=== PATIENT | male | born 1960 | race Two or more races ===

== ENCOUNTER 2018-09-18 17:22 | Inpatient (IN) | payer MEDICAID ==
[~2018-09-18] VITALS: Ht 177.8 cm; Wt 113.4 kg
[2018-09-18] VITALS (24 sets, daily range): BP systolic 135–158; BP diastolic 73–85
[2018-09-18] MEDS ORDERED: Ciprofloxacin Opth Soln 2.5ml BOTH EYES ONE (17:45)
[2018-09-18] MEDS ORDERED: DiphenhydrAMINE 50mg/ml Inj IM ONE (17:45)
[2018-09-18] MEDS ORDERED: Haloperidol 5mg/ml Inj IM ONE ×2 (17:45→19:15)
--- NOTE | 2018-09-18 18:00 | NUR ---
ED Nurse Note:[facility] ,he doesn't fallow command walked around ER then layed on the floor 2 times without injury and getting up on his own, then he was placed on 4 points behaivioral restraints
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
--- NOTE | 2018-09-18 18:36 | NUR ---
ED Nurse Note:pt. can't go to head CT scan because he is still restless
[2018-09-18 18:43] LABS: BASOPHILS % (AUTO) 0.8 % (0.0-2.0); EOSINOPHILS % (AUTO) 2.4 % (0.0-3.0); HEMOGLOBIN 14.8 G/DL (14.2-18.0); LYMPHOCYTES % (AUTO) 18.9 % (20.0-45.0); MEAN CORPUSCULAR VOLUME 90 FL (80-99); MONOCYTES % (AUTO) 5.9 % (1.0-10.0); NEUTROPHILS % (AUTO) 71.9 % (45.0-75.0); PLATELET COUNT 209 K/UL (150-450); RED BLOOD COUNT 4.79 M/UL (4.70-6.10); RED CELL DISTRIBUTION WIDTH 11.3 % (11.6-14.8)
--- NOTE | 2018-09-18 18:58 | NUR ---
ED Nurse Note:pt. is still agitated- MD was notified
[2018-09-18 19:34] LABS: ANION GAP 12 mmol/L (5-15); BLOOD UREA NITROGEN 27 mg/dL (7-18); CALCIUM 9.4 MG/DL (8.5-10.1); CARBON DIOXIDE 25 MMOL/L (21-32); CHLORIDE 101 MMOL/L (98-107); CREATININE 1.1 MG/DL (0.55-1.30); POTASSIUM 3.9 MMOL/L (3.5-5.1); SODIUM 138 MMOL/L (136-145)
[2018-09-18 19:38] LABS: ALANINE AMINOTRANSFERASE 42 U/L (12-78); ALBUMIN 4.3 G/DL (3.4-5.0); ALBUMIN/GLOBULIN RATIO 1.1 (1.0-2.7); ALKALINE PHOSPHATASE 89 U/L (46-116); ASPARTATE AMINO TRANSFERASE 45 U/L (15-37); BILIRUBIN,TOTAL 0.8 MG/DL (0.2-1.0)
--- NOTE | 2018-09-18 19:46 | Diagnostic Imaging Report ---
EXAM: XR Chest, 1 View CLINICAL HISTORY: ALOC TECHNIQUE: Frontal view of the chest. COMPARISON: No relevant prior studies available. FINDINGS: Limitations: Limited due to hypoventilation. Lungs: Possible mild pulmonary edema/infiltrates, versus hypoventilation. Pleural space: Unremarkable. No pneumothorax. Heart: Mildly prominent heart size. Mediastinum: Unremarkable. Bones/joints: Unremarkable. IMPRESSION: 1. Limited due to hypoventilation. 2. Possible mild pulmonary edema/infiltrates, versus hypoventilation.
--- NOTE | 2018-09-18 20:30 | NUR ---
ED Nurse Note: Report givent to ENE Pope. Pt in stable condition. Plan of care endorsed Addendum: 09/19/18 at 0417 by LCRISOSTOM [id number] ; wrong time
--- NOTE | 2018-09-18 21:40 | NUR ---
ED Nurse Note: Received report from Naun LOVE/ ENE. Pt is A/O X3, confused. VSS at this titme, will continue to monitor.
--- NOTE | 2018-09-18 21:41 | NUR ---
ED Nurse Note: None behaver restrain was not applied at this time.
[2018-09-18 22:19] LABS: APPEARANCE,URINE SLIGHTLY CLOUDY; BILIRUBIN, URINE NEGATIVE (NEGATIVE); COLOR,URINE PALE YELLOW; GLUCOSE, URINE (UA) 3+ (NEGATIVE); KETONES,URINE NEGATIVE (NEGATIVE); LEUKOCYTE ESTERASE ,URINE 1+ (NEGATIVE); NITRITE,URINE NEGATIVE (NEGATIVE); PH,URINE 5 (4.5-8.0); PROTEIN,URINE 2+ (NEGATIVE); UROBILINOGEN,URINE NORMAL MG/DL (0.0-1.0)
[2018-09-18] MEDS ORDERED: DiphenhydrAMINE 50mg/ml Inj IVP ONE (23:00)
[2018-09-18] MEDS ORDERED: LORazepam Inj 2mg/ml 1ml IV ONE ×2 (23:00→23:45)
[2018-09-19] VITALS: BP 146/76
--- NOTE | 2018-09-19 00:05 | NUR ---
ED Nurse Note: Pt was resting quietly in bed at this time. Juice and sandwich provided, urinal provided as well. Pt looks more alert and oriented at this time. Behavioral restrain was removed.
--- NOTE | 2018-09-19 01:23 | Diagnostic Imaging Report ---
EXAM: CT Head Without Intravenous Contrast CLINICAL HISTORY: ALOC TECHNIQUE: Axial computed tomography images of the head/brain without intravenous contrast. CTDI is 70 mGy and DLP is 1562 mGy-cm. One or more of the following dose reduction techniques were used: automated exposure control, adjustment of the mA and/or kV according to patient size, use of iterative reconstruction technique. COMPARISON: No relevant prior studies available. FINDINGS: Brain: Unremarkable. No hemorrhage. No significant white matter disease. No edema. Ventricles: Unremarkable. No ventriculomegaly. Bones/joints: Unremarkable. No acute fracture. Soft tissues: Unremarkable. Sinuses: Increased pneumatization of the frontal sinuses. Mucosal thickening of the ethmoid sinus. Mastoid air cells: Unremarkable as visualized. No mastoid effusion. IMPRESSION: No acute intracranial pathology.
--- NOTE | 2018-09-19 03:40 | NUR ---
TRANSFER TO FLOOR: Patient transferred to Tele/ 2E as ordered. Report given to Adriana/ENE. Belongings sent with Pt and rechecked with RN.
--- NOTE | 2018-09-19 03:45 | NUR ---
NURSE NOTES: Received report from DANYA Quevedo RN. Patient was transferred to Telemetry unit from ER via gurney without incident. No signs of acute distress noted; denies pain at this time. AOx2-3; able to make needs known. Checked IV site; patent and flushed. No erythema, bleeding, or infiltration noted. Patient put on Tele box; sinus tachycardic on the monitor (100s). Belongings list checked. Skin assessment performed; no wounds noted. Skin is intact. Bed at lowest position, brakes on, siderails up x3. Call light within reach. Will continue to monitor.
--- NOTE | 2018-09-19 03:58 | NUR ---
NURSE NOTES: Called Dr. Boswell for admission orders. Awaiting callback.
--- NOTE | 2018-09-19 04:19 | NUR ---
NURSE NOTES: Received admission orders from Dr. Boswell. Noted and carried out. No Heparin subQ order given for DVT prophylaxis at this time.
[2018-09-19] MEDS ORDERED: LORazepam Inj 2mg/ml 1ml IV PRN ×2 (04:30→18:00)
[2018-09-19] MEDS ORDERED: ASPIRIN81 MG ORAL (04:31)
[2018-09-19] MEDS ORDERED: BENZTROPINE ME0.5 MG PO (04:31)
[2018-09-19] MEDS ORDERED: ACETAMINOPHEN325 M1 ORAL (04:31)
--- NOTE | 2018-09-19 07:34 | NUR ---
HAND-OFF: Report given to ENE Leahy. Patient is awake sitting chairfast. In stable condition.
--- NOTE | 2018-09-19 07:43 | NUR ---
NURSE NOTES: Pt in room rooming around in and out of room into [address], pt Ox1 with confusion, mumbles words, not sure if he speaks tajik, pt seems to be GD (Gravely Disabled), call light at bedside, bed in low position, pt follows commands, IV asymptomatic, no s/s of distress or sob noted.
[2018-09-19 08:00] VITALS: BP 136/80
[2018-09-19] MEDS ORDERED: Aspirin Baby 81mg ORAL SCH (09:00)
[2018-09-19] MEDS ORDERED: Benztropine 1mg tab ORAL SCH (09:00)
--- NOTE | 2018-09-19 09:08 | History & Physical ---
History and Physical History & Physicial 58 year old male presents with ALOC work up in ER negative no significant medical issues noted PMH negative MEDS noted ALLERGIES noted PHYSICAL WDWN NAD clear breath sounds bilaterally without rhonchi or wheeze [id number] without MRG NABS nontender no HSM no CCE nonfocal Labs Test 09/18/18 18:20 09/18/18 22:08 White Blood Count 11.0 K/UL (4.8-10.8) Red Blood Count 4.79 M/UL (4.70-6.10) Hemoglobin 14.8 G/DL (14.2-18.0) Hematocrit 43.0 % (42.0-52.0) Mean Corpuscular Volume 90 FL (80-99) Mean Corpuscular Hemoglobin 31.0 PG (27.0-31.0) Mean Corpuscular Hemoglobin Concent 34.5 G/DL (32.0-36.0) Red Cell Distribution Width 11.3 % (11.6-14.8) Platelet Count 209 K/UL (150-450) Mean Platelet Volume 7.2 FL (6.5-10.1) Neutrophils (%) (Auto) 71.9 % (45.0-75.0) Lymphocytes (%) (Auto) 18.9 % (20.0-45.0) Monocytes (%) (Auto) 5.9 % (1.0-10.0) Eosinophils (%) (Auto) 2.4 % (0.0-3.0) Basophils (%) (Auto) 0.8 % (0.0-2.0) Sodium Level 138 MMOL/L (136-145) Potassium Level 3.9 MMOL/L (3.5-5.1) Chloride Level 101 MMOL/L (98-107) Carbon Dioxide Level 25 MMOL/L (21-32) Anion Gap 12 mmol/L (5-15) Blood Urea Nitrogen 27 mg/dL (7-18) Creatinine 1.1 MG/DL (0.55-1.30) Estimat Glomerular Filtration Rate > 60 mL/min (>60) Glucose Level 244 MG/DL (74-106) Calcium Level 9.4 MG/DL (8.5-10.1) Total Bilirubin 0.8 MG/DL (0.2-1.0) Aspartate Amino Transf (AST/SGOT) 45 U/L (15-37) Alanine Aminotransferase (ALT/SGPT) 42 U/L (12-78) Alkaline Phosphatase 89 U/L (46-116) Troponin I 0.000 ng/mL (0.000-0.056) Total Protein 8.1 G/DL (6.4-8.2) Albumin 4.3 G/DL (3.4-5.0) Globulin 3.8 g/dL Albumin/Globulin Ratio 1.1 (1.0-2.7) Salicylates Level 2.5 ug/mL (2.8-20) Acetaminophen Level < 2 MCG/ML (10-30) Serum Alcohol < 3 mg/dL Urine Color Pale yellow Urine Appearance Slightly cloudy Urine pH 5 (4.5-8.0) Urine Specific [place] 1.020 (1.005-1.035) Urine Protein 2+ (NEGATIVE) Urine Glucose (UA) 3+ (NEGATIVE) Urine Ketones Negative (NEGATIVE) Urine Blood 4+ (NEGATIVE) Urine Nitrite Negative (NEGATIVE) Urine Bilirubin Negative (NEGATIVE) Urine Urobilinogen Normal MG/DL (0.0-1.0) Urine Leukocyte Esterase 1+ (NEGATIVE) Urine RBC 10-15 /HPF (0 - 0) Urine WBC 2-4 /HPF (0 - 0) Urine Squamous Epithelial Cells Occasional /LPF Urine Amorphous Sediment Moderate /LPF (NONE) Urine Bacteria Few /HPF (NONE) Urine Mucus Few /LPF (NONE/OCC) Urine Opiates Screen Negative (NEGATIVE) Urine Barbiturates Screen Negative (NEGATIVE) Phencyclidine (PCP) Screen Negative (NEGATIVE) Urine Amphetamines Screen Negative (NEGATIVE) Urine Benzodiazepines Screen Negative (NEGATIVE) Urine Cocaine Screen Negative (NEGATIVE) Urine Marijuana (THC) Screen Positive (NEGATIVE) IMPRESSION hematuria acute encephalopathy +marijuana PLAN monitor PT eval dc once stable consider neuro and psych evaluation impression, plan, and exam edited and reviewed in detail care discussed with Chase Alejandre MD Sep 19, 2018 09:08
--- NOTE | 2018-09-19 09:08 | NUR ---
CASE MANAGEMENT:REVIEW BIBA FROM [facility]; AMS SI:ALOC. BACTERIAL CONJUNCTIVITIS. COLLAPSE 99.2 102 18 158/76 98% ON RA WBC 11.0 BUN 27 GLUCOSE 244 IS: 1L NS BOLUS CIPRO EYE DROPS HALDOL IM X2 IV BENADRYL IV ATIVAN X2 CT HEAD CXR : TO TELEMETRY PLAN: PSYCH EVAL SOCIAL SERVICE CONSULT PT EVAL NEURO CHECKS Q4HRS INTERQUAL CRITERI MET
[2018-09-19 11:49] VITALS: BP 126/76
[2018-09-19 16:00] VITALS: BP 134/79
--- NOTE | 2018-09-19 17:07 | NUR ---
NURSE NOTES: Pt transferred to 3E and report given to Monika Hoang. Pt Ox1 calm and cooperative but likes to wonder.
--- NOTE | 2018-09-19 19:48 | NUR ---
NURSE NOTES: Received report from Monika LUQUE. Pt only oriented to self and is confused. Likes to wonder around but is calm and redirectable. VSS. Call light within reach, bed in low and locked position, bedside table within reach. Continue to monitor.
[2018-09-19 20:00] VITALS: BP 131/54
[2018-09-20] VITALS: BP 140/87
[2018-09-20 04:00] VITALS: BP 121/72
--- NOTE | 2018-09-20 07:30 | NUR ---
NURSE NOTES: Patient is awake and stable. No s/s distress at this time. Patient denies pain or SOB. Patient is in good spirits. Patient in bed in locked position and call light within reach. Will continue to monitor.
[2018-09-20 08:00] VITALS: BP 133/80
--- NOTE | 2018-09-20 08:02 | NUR ---
HAND-OFF: Report given to Pauline Hoang. endorsed plan of care.
[2018-09-20] MEDS: Benztropine 1mg tab ORAL SCH (09:08)
[2018-09-20] MEDS: Aspirin Baby 81mg ORAL SCH (09:08)
--- NOTE | 2018-09-20 11:01 | NUR ---
CASE MANAGEMENT: REVIEW SI: AMS T 97.4 HR 78 RR 20 BP 133/80 BP 97% ROOM AIR IS: ASA PO QD COGENTIN PO QD MED/SURG STATUS DCP: PATIENT REPORTS HOMELESSNESS
[2018-09-20 12:00] VITALS: BP 141/82
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
[2018-09-20 16:00] VITALS: BP 134/75
--- NOTE | 2018-09-20 19:25 | NUR ---
NURSE NOTES: Report taken from ENE Moraes. Patient is alert and out of bed, walking around room. On room air, no signs of distress or pain. Patient is hoping to get discharged. States that is not homeless and can provide and address but no phone number. RN told patient that once the family is found he can go home. Continue to monitor and observe patient. Talk to case management if he does not continue to find family.
--- NOTE | 2018-09-20 19:43 | NUR ---
HAND-OFF: Report given to Kraig LUQUE. Patient is stable.
[2018-09-20 20:00] VITALS: BP 137/77
--- NOTE | 2018-09-20 22:26 | General Progress Note ---
Assessment/Plan Assessment/Plan IMPRESSION hematuria acute encephalopathy +marijuana PLAN ok to dc awaiting safe discharge impression, plan, and exam edited and reviewed in detail care discussed with RN Subjective Allergies: Coded Allergies: UNABLE TO ASSESS (Unverified , 09/18/18) Subjective awaiting dc psych called Objective Last 24 Hour Vital Signs Date Time Temp Pulse Resp B/P (MAP) Pulse Ox O2 Delivery O2 Flow Rate FiO2 09/20/18 16:00 96.8 77 20 134/75 (94) 98 09/20/18 12:00 99.3 73 20 141/82 (101) 98 09/20/18 09:00 Room Air 09/20/18 08:00 97.4 78 20 133/80 (97) 97 09/20/18 04:00 98.7 66 19 121/72 (88) 95 09/20/18 00:00 98.8 72 18 140/87 (104) 95 Intake and Output 09/19/18 09/20/18 19:00 07:00 Intake Total 200 ml 240 ml Balance 200 ml 240 ml Intake Oral 200 ml 240 ml # Voids 2 2 Height (Feet): 5 Height (Inches): 10.00 Weight (Pounds): 250 Objective WDWN NAD clear breath sounds bilaterally without rhonchi or wheeze [id number] without MRG NABS nontender no HSM no CCE nonfocal Chase Boswell MD Sep 20, 2018 22:26
[2018-09-21] VITALS: BP 123/71
--- NOTE | 2018-09-21 03:57 | NUR ---
NURSE NOTES: Patient refused 0400 vitals.
--- NOTE | 2018-09-21 07:17 | NUR ---
HAND-OFF: Report given to ENE Lee.
--- NOTE | 2018-09-21 07:30 | NUR ---
NURSE NOTES: Patient sitting in chair eating breakfast. No complain of pain or distress at this time. Skin intact and dry. No IV access and MD aware. Bed lowest position. Call light within reach. Will continue to monitor.
[2018-09-21 08:00] VITALS: BP 126/80
[2018-09-21] MEDS: Benztropine 1mg tab ORAL SCH (09:12)
[2018-09-21] MEDS: Aspirin Baby 81mg ORAL SCH (09:12)
[2018-09-21 12:00] VITALS: BP 122/76
--- NOTE | 2018-09-21 13:41 | Consultation ---
History of Present Illness General Chief Complaint: General Complaint Present Illness HPI 58 yo male with hx of schizoaffective d.o who is admitted here for medical stabilization. The pt denied psychiatric illness and stated that he doesn't need psychiatric care nor meds. [place] he found self in the hospital. the pt has no recollection of what led him to this hospitalization. The pts family was called spoke to the sister the pts sister has power of assistant prosecuting attorney. the pts speech was slurred and per sister thats the pts baseline. no si/hi Allergies: Coded Allergies: UNABLE TO ASSESS (Unverified , 09/18/18) Medication History Miscellaneous Medications Acetaminophen* (Acetaminophen 325MG Tablet*), Unknown Dose ORAL, (Reported) Aspirin* (Aspirin*), Unknown Dose ORAL, (Reported) Benztropine Mesylate* (Cogentin*), Unknown Dose PO, (Reported) Patient History History Provided By: Patient, Family Member, Medical Record Healthcare decision maker Resuscitation status Full Code Advanced Directive on File Past Medical/Surgical History Past Medical/Surgical History: (1) Bacterial conjunctivitis (2) Altered level of consciousness (3) Collapse (4) Marijuana use Review of Systems Psychiatric: Reports: anxiety, depressed feelings, emotional problems, hallucinations Physical Exam General Appearance: alert, agitated Neurologic: oriented x 3, responsive, depressed affect Last 24 Hour Vital Signs Date Time Temp Pulse Resp B/P (MAP) Pulse Ox O2 Delivery O2 Flow Rate FiO2 09/21/18 12:00 97.5 70 20 122/76 (91) 99 09/21/18 09:00 Room Air 09/21/18 08:00 97.8 70 19 126/80 (95) 98 09/21/18 00:00 98.1 74 18 123/71 (88) 98 09/20/18 21:00 Room Air 09/20/18 20:00 97.9 68 18 137/77 (97) 100 09/20/18 16:00 96.8 77 20 134/75 (94) 98 Intake and Output 09/20/18 09/21/18 19:00 07:00 Intake Total 840 ml 360 ml Balance 840 ml 360 ml Intake Oral 840 ml 360 ml # Voids 4 2 Height (Feet): 5 Height (Inches): 10.00 Weight (Pounds): 250 Medications Current Medications Medications (Trade) Dose Ordered Sig/Yoan Route PRN Reason Start Time Stop Time Status Last Admin Dose Admin Acetaminophen (Tylenol) 650 mg Q4H PRN ORAL Mild Pain/Temp > 100.5 09/19/18 20:30 10/19/18 04:29 Aspirin (ASA) 81 mg DAILY ORAL 09/20/18 09:00 10/19/18 08:59 09/21/18 09:12 Benztropine Mesylate (Cogentin) 1 mg DAILY ORAL 09/20/18 09:00 10/19/18 08:59 09/21/18 09:12 Lorazepam (Ativan 2mg/ml 1ml) 1 mg Q3H PRN IV MILD ANXIETY 09/19/18 18:00 09/26/18 17:59 Assessment/Plan Problem List: (1) Schizoaffective disorder ICD Codes: F25.9 - Schizoaffective disorder, unspecified SNOMED: 98983551 (2) Marijuana use ICD Codes: F12.90 - Cannabis use, unspecified, uncomplicated SNOMED: 479309540 Assessment/Plan depakote er 1000mg qhs risperdal 2mg qhs the pt lacks capacity to refuse meds/nor leave Rola Carmona MD Sep 21, 2018 13:41
[2018-09-21] MEDS ORDERED: LORazepam Inj 2mg/ml 1ml IV PRN (15:00)
[2018-09-21 16:00] VITALS: BP 133/73
--- NOTE | 2018-09-21 16:28 | NUR ---
Social Service Note Patient's insurance information updated. Due to patient's [employer] HMO and requiring PET Eval there are limited choices for assessment. [facility] [phone] (p) [phone] (f). No beds at this time however are willing to hold referral pending review. Confirmed faxed was received. [facility] [phone] (p) [phone] (f) no beds asked SW to follow up tomorrow. [facility] [phone] (p) [phone] (f) no beds asked SW to follow up tomorrow. SW spoke with patient's sister Carlos Enrique [phone] and inquired about documentation indicating patient is autistic. Sister states patient was never diagnosed with autism and is not a the [facility] clinic. Sister states a nurse once indicated to her that patient would talk to himself and this could be an indication of autism. SW clarified that throughout patient's medical history a physician never diagnosed patient with autism and sister stated a physician never diagnosed patient. Patient has never received autistic related services. APS case was filed through [facility] [employer] [facility] prior to admission. GIOVANNI Barrientos assigned to patient's case [phone] (c) [phone] (o). Met with patient today. APS SW to be notified of dc plan upon discharge. SW will follow up regarding psych placement, CM to discuss locked placement with insurance CM.
--- NOTE | 2018-09-21 17:35 | NUR ---
CASE MANAGEMENT: REVIEW SI: AMS T 97.5 HR 70 RR 20 BP 122/76 SAT 99% ROOM AIR IS: ASA PO QD COGENTIN PO QD MED/SURG STATUS DCP: PATIENT REPORTS HOMELESSNESS
--- NOTE | 2018-09-21 19:20 | NUR ---
HAND-OFF: Report given to Kraig LUQUE. Patient in stable condition.
--- NOTE | 2018-09-21 19:25 | NUR ---
NURSE NOTES: Report taken from ENE Lee. patient alert and walking around room. No signs of distress, on room air. No pain. Still asks what his discharge plan is. Continue to monitor, bed in lowest position, call light within reach.
--- NOTE | 2018-09-21 19:47 | General Progress Note ---
Assessment/Plan Assessment/Plan IMPRESSION hematuria acute encephalopathy +marijuana PLAN psych noted awaiting safe discharge family refusing to take patient impression, plan, and exam edited and reviewed in detail care discussed with RN Subjective Allergies: Coded Allergies: UNABLE TO ASSESS (Unverified , 09/18/18) Subjective awaiting dc psych called Objective Last 24 Hour Vital Signs Date Time Temp Pulse Resp B/P (MAP) Pulse Ox O2 Delivery O2 Flow Rate FiO2 09/21/18 16:00 97.7 70 19 133/73 (93) 98 09/21/18 12:00 97.5 70 20 122/76 (91) 99 09/21/18 09:00 Room Air 09/21/18 08:00 97.8 70 19 126/80 (95) 98 09/21/18 00:00 98.1 74 18 123/71 (88) 98 09/20/18 21:00 Room Air 09/20/18 20:00 97.9 68 18 137/77 (97) 100 Intake and Output 09/20/18 09/21/18 19:00 07:00 Intake Total 840 ml 360 ml Balance 840 ml 360 ml Intake Oral 840 ml 360 ml # Voids 4 2 Height (Feet): 5 Height (Inches): 10.00 Weight (Pounds): 250 Objective WDWN NAD clear breath sounds bilaterally without rhonchi or wheeze [id number] without MRG NABS nontender no HSM no CCE nonfocal Chase Boswell MD Sep 21, 2018 19:47
[2018-09-21 20:00] VITALS: BP 118/75
[2018-09-21] MEDS: Depakote ER 500mg tab ORAL SCH (20:55)
[2018-09-22] VITALS: BP 120/70
[2018-09-22 04:00] VITALS: BP 125/75
--- NOTE | 2018-09-22 07:15 | NUR ---
HAND-OFF: Report given to ENE Lee.
--- NOTE | 2018-09-22 07:30 | NUR ---
NURSE NOTES: Patient lying in bed awake. No complain of pain or distress at this time. Skin intact and dry. All needs met. Bed lowest position. Call light within reach. Will continue to monitor.
[2018-09-22 08:00] VITALS: BP 118/78
[2018-09-22] MEDS: Aspirin Baby 81mg ORAL SCH (09:04)
[2018-09-22] MEDS: Benztropine 1mg tab ORAL SCH (09:04)
--- NOTE | 2018-09-22 11:51 | NUR ---
Social Service Note GIOVANNI received a call from Sai at [facility]. GIOVANNI contacted Dr. Boswell to clarify treatment. Indication that patient had bacterial conjunctivitis. Patient's sister stated she left Dr. Reno a message regarding patient not being diagnosed with Autism. Psych will not be able to accept patient with this diagnosis. Will monitor and follow up.
[2018-09-22 12:00] VITALS: BP 144/80
--- NOTE | 2018-09-22 15:29 | Pulmonology Progress Note ---
Assessment/Plan Assessment/Plan Pulmonary Progress Note Assessment/Plan Assessment/Plan IMPRESSION hematuria acute encephalopathy +marijuana PLAN psych noted awaiting safe discharge family refusing to take patient impression, plan, and exam edited and reviewed in detail care discussed with RN Subjective Allergies: Coded Allergies: UNABLE TO ASSESS (Unverified , 09/18/18) Subjective awaiting dc psych called Objective Vital Signs Noted Height (Feet): 5 Height (Inches): 10.00 Weight (Pounds): 250 Objective WDWN NAD clear breath sounds bilaterally without rhonchi or wheeze [id number] without MRG NABS nontender no HSM no CCE nonfocal Subjective ROS Limited/Unobtainable: No Allergies: Coded Allergies: UNABLE TO ASSESS (Unverified , 09/18/18) Objective Last 24 Hour Vital Signs Date Time Temp Pulse Resp B/P (MAP) Pulse Ox O2 Delivery O2 Flow Rate FiO2 09/22/18 12:00 97.3 72 20 144/80 (101) 99 09/22/18 09:00 Room Air 09/22/18 08:00 97.3 81 20 118/78 (91) 97 09/22/18 04:00 98.0 75 17 125/75 (92) 96 09/22/18 00:00 98.1 80 19 120/70 (87) 98 09/21/18 21:00 Room Air 09/21/18 20:00 98.5 64 17 118/75 (89) 99 09/21/18 16:00 97.7 70 19 133/73 (93) 98 Intake and Output 09/21/18 09/22/18 19:00 07:00 Intake Total 900 ml 400 ml Balance 900 ml 400 ml Intake Oral 900 ml 400 ml # Voids 6 2 Current Medications Medications (Trade) Dose Ordered Sig/Yoan Route PRN Reason Start Time Stop Time Status Last Admin Dose Admin Acetaminophen (Tylenol) 650 mg Q4H PRN ORAL Mild Pain/Temp > 100.5 09/19/18 20:30 10/19/18 04:29 Aspirin (ASA) 81 mg DAILY ORAL 09/20/18 09:00 10/19/18 08:59 09/22/18 09:04 Benztropine Mesylate (Cogentin) 1 mg DAILY ORAL 09/20/18 09:00 10/19/18 08:59 09/22/18 09:04 Divalproex Sodium (Depakote ER) 1,000 mg BEDTIME ORAL 09/21/18 21:00 10/21/18 20:59 09/21/18 20:55 Lorazepam (Ativan 2mg/ml 1ml) 1 mg Q3H PRN IV MILD ANXIETY 09/21/18 15:00 09/28/18 14:59 Risperidone (RisperDAL) 2 mg BEDTIME ORAL 09/21/18 21:00 10/21/18 20:59 09/21/18 20:54 Junior Landaverde MD Sep 22, 2018 15:29
[2018-09-22 16:00] VITALS: BP 136/83
--- NOTE | 2018-09-22 16:14 | NUR ---
CASE MANAGEMENT: REVIEW SI: AMS T 97.3 HR 72 RR 20 BP 144/80 SAT 99% ROOM AIR IS: ASA PO QD COGENTIN PO QD MED/SURG STATUS DCP: PATIENT REPORTS HOMELESSNESS
--- NOTE | 2018-09-22 19:45 | NUR ---
HAND-OFF: Report given to Gina LUQUE. Patient in stable condition.
--- NOTE | 2018-09-22 19:50 | NUR ---
NURSE NOTES: patient received. patient in no acute distress at this time. patietn appears ot be in no pain at this time. bed awake and alert x1. confused. patient ambulatory and steady. no IV doctor aware. bed in lowest position and locked. call light within reach. will continue to monitor.
[2018-09-22 20:00] VITALS: BP 138/79
--- NOTE | 2018-09-22 20:06 | General Progress Note ---
Assessment/Plan Problem List: (1) Schizoaffective disorder ICD Codes: F25.9 - Schizoaffective disorder, unspecified SNOMED: 69762159 (2) Marijuana use ICD Codes: F12.90 - Cannabis use, unspecified, uncomplicated SNOMED: 380507985 Status: unchanged Assessment/Plan depakote er 1000mg qhs risperdal 2mg qhs the pt lacks capacity to refuse meds/nor leave ama dw sister Subjective Neurologic/Psychiatric: Reports: anxiety, depressed, emotional problems Allergies: Coded Allergies: UNABLE TO ASSESS (Unverified , 09/18/18) Objective Last 24 Hour Vital Signs Date Time Temp Pulse Resp B/P (MAP) Pulse Ox O2 Delivery O2 Flow Rate FiO2 09/22/18 16:00 99.0 73 21 136/83 (100) 98 09/22/18 12:00 97.3 72 20 144/80 (101) 99 09/22/18 09:00 Room Air 09/22/18 08:00 97.3 81 20 118/78 (91) 97 09/22/18 04:00 98.0 75 17 125/75 (92) 96 09/22/18 00:00 98.1 80 19 120/70 (87) 98 09/21/18 21:00 Room Air Intake and Output 09/21/18 09/22/18 19:00 07:00 Intake Total 900 ml 400 ml Balance 900 ml 400 ml Intake Oral 900 ml 400 ml # Voids 6 2 Height (Feet): 5 Height (Inches): 10.00 Weight (Pounds): 250 General Appearance: no apparent distress, alert Neurologic: oriented x 3, responsive, depressed affect Rola Reno MD Sep 22, 2018 20:06
[2018-09-22] MEDS: Depakote ER 500mg tab ORAL SCH (20:46)
[2018-09-23] VITALS: BP 119/78
[2018-09-23 04:00] VITALS: BP 123/73
--- NOTE | 2018-09-23 07:09 | NUR ---
HAND-OFF: Report given to ENE Gonzalez.
--- NOTE | 2018-09-23 07:25 | NUR ---
NURSE NOTES: Received report from Gina LUQUE. On rounds, patient is asleep in bed. No s/s acute distress noted, RR even and unlabored. Patient has no IV, per report MD is aware and ok with no IV. Patient is clear for discharge pending SNF placement. Will continue to monitor and follow up.
[2018-09-23 08:00] VITALS: BP 115/74
[2018-09-23] MEDS: Benztropine 1mg tab ORAL SCH (08:27)
[2018-09-23] MEDS: Aspirin Baby 81mg ORAL SCH (08:27)
--- NOTE | 2018-09-23 11:52 | NUR ---
REHAB MED PT NOTE -RE EVAL REEVAL COMPLTD, CONSULT RECEIVED, PATIENT WILL BENEFIT FROM CONTINUED SKILLED PT SERVICES DURING STAY DUE TO A DECREASE IN FUNCTIONAL MOBILITY SECONDARY TO WEAKNESS AND SEDENTARY TIME IN BED. RECOMMEND SNF AT [place]. PLAN OF CARE INITIATED. GIULIANA MARION PT DPT Addendum: 09/23/18 at 1153 by GIULIANA MARION PT Amended: Links added.
[2018-09-23 12:00] VITALS: BP 119/79
--- NOTE | 2018-09-23 13:12 | NUR ---
Social Service Note Patient accepted at [facility] [phone] per Lizzy. No beds however are available at this time. Facility will contact and nursing station once a bed is available. Will continue to monitor and follow up.
--- NOTE | 2018-09-23 13:56 | NUR ---
CASE MANAGEMENT: REVIEW SI: AMS T 97.5 HR 75 RR 19 BP 119/79 SAT 100% ROOM AIR IS: ASA PO QD COGENTIN PO QD MED/SURG STATUS DCP: SNF PLACEMENT
[2018-09-23 16:00] VITALS: BP 128/78
--- NOTE | 2018-09-23 16:48 | General Progress Note ---
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) PLAN psych noted awaiting safe discharge family refusing to take patient impression, plan, and exam edited and reviewed in detail care discussed with RN Subjective Allergies: Coded Allergies: UNABLE TO ASSESS (Unverified , 09/18/18) Subjective awaiting dc psych noted Objective Last 24 Hour Vital Signs Date Time Temp Pulse Resp B/P (MAP) Pulse Ox O2 Delivery O2 Flow Rate FiO2 09/23/18 12:00 97.5 75 19 119/79 (92) 100 09/23/18 09:00 Room Air 09/23/18 08:00 98.3 86 20 115/74 (88) 100 09/23/18 04:00 98.3 71 18 123/73 (90) 98 09/23/18 00:00 98.7 81 18 119/78 (92) 98 09/22/18 21:00 Room Air 09/22/18 20:00 98.1 74 18 138/79 (98) 100 Intake and Output 09/22/18 09/23/18 18:59 06:59 # Voids 3 2 Height (Feet): 5 Height (Inches): 10.00 Weight (Pounds): 250 Objective WDWN NAD clear breath sounds bilaterally without rhonchi or wheeze [id number] without MRG NABS nontender no HSM no CCE nonfocal Chase Boswell MD Sep 23, 2018 16:48
--- NOTE | 2018-09-23 19:40 | NUR ---
HAND-OFF: Report given to Mago VANEGAS.
--- NOTE | 2018-09-23 19:50 | NUR ---
NURSE NOTES: Patient received from ALESHA HollidayPatient A/A/OX2 Confused. patient denies any pain at this time . no sob/ no n/v noted at this time . safety maintained. call light within reach . bed in low position at all times . will continue to monitor patient .
[2018-09-23 20:00] VITALS: BP 123/75
[2018-09-23] MEDS: Depakote ER 500mg tab ORAL SCH (21:25)
--- NOTE | 2018-09-23 23:42 | General Progress Note ---
Assessment/Plan Problem List: (1) Schizoaffective disorder ICD Codes: F25.9 - Schizoaffective disorder, unspecified SNOMED: 94635861 (2) Marijuana use ICD Codes: F12.90 - Cannabis use, unspecified, uncomplicated SNOMED: 628898997 Assessment/Plan depakote er 1000mg qhs risperdal 2mg qhs the pt lacks capacity to refuse meds/nor leave ama dw sister Subjective Neurologic/Psychiatric: Reports: anxiety, depressed, emotional problems Allergies: Coded Allergies: UNABLE TO ASSESS (Unverified , 09/18/18) Objective Last 24 Hour Vital Signs Date Time Temp Pulse Resp B/P (MAP) Pulse Ox O2 Delivery O2 Flow Rate FiO2 09/23/18 21:00 Room Air 09/23/18 20:00 97.5 79 20 123/75 (91) 98 09/23/18 16:00 97.8 78 20 128/78 (95) 99 09/23/18 12:00 97.5 75 19 119/79 (92) 100 09/23/18 09:00 Room Air 09/23/18 08:00 98.3 86 20 115/74 (88) 100 09/23/18 04:00 98.3 71 18 123/73 (90) 98 09/23/18 00:00 98.7 81 18 119/78 (92) 98 Intake and Output 09/22/18 09/23/18 19:00 07:00 # Voids 3 2 Height (Feet): 5 Height (Inches): 10.00 Weight (Pounds): 250 General Appearance: alert Neurologic: oriented x 3, responsive, depressed affect Rola Reno MD Sep 23, 2018 23:42
[2018-09-24] VITALS: BP 123/73
[2018-09-24 04:00] VITALS: BP 132/74
--- NOTE | 2018-09-24 07:45 | NUR ---
HAND-OFF: Report given to Lisa Holliday Patient in stable condition.
[2018-09-24 08:00] VITALS: BP 122/75
--- NOTE | 2018-09-24 08:36 | NUR ---
NURSE NOTES: Pt in bed sleeping in no acute distress, pt refuses IV access, no IV. Pt left in bed in low position, call lighti within reach, skid socks on. Will continue to monitor.
[2018-09-24] MEDS: Benztropine 1mg tab ORAL SCH (09:48)
[2018-09-24] MEDS: Aspirin Baby 81mg ORAL SCH (09:48)
[2018-09-24 12:00] VITALS: BP 123/74
--- NOTE | 2018-09-24 14:42 | Pulmonology Progress Note ---
Assessment/Plan Assessment/Plan Pulmonary Progress Note Assessment/Plan Assessment/Plan IMPRESSION hematuria acute encephalopathy +marijuana PLAN psychiatry following awaiting safe discharge family refusing to take patient impression, plan, and exam edited and reviewed in detail care discussed with RN Subjective Allergies: Coded Allergies: UNABLE TO ASSESS (Unverified , 09/18/18) Subjective awaiting dc psych called Objective Vital Signs Noted Height (Feet): 5 Height (Inches): 10.00 Weight (Pounds): 250 Objective WDWN NAD clear breath sounds bilaterally without rhonchi or wheeze [id number] without MRG NABS nontender no HSM no CCE nonfocal Subjective ROS Limited/Unobtainable: No Allergies: Coded Allergies: UNABLE TO ASSESS (Unverified , 09/18/18) Objective Last 24 Hour Vital Signs Date Time Temp Pulse Resp B/P (MAP) Pulse Ox O2 Delivery O2 Flow Rate FiO2 09/24/18 08:00 98.3 72 20 122/75 (91) 98 09/24/18 04:00 98.2 77 20 132/74 (93) 98 09/24/18 00:00 98.3 85 20 123/73 (90) 97 09/23/18 21:00 Room Air 09/23/18 20:00 97.5 79 20 123/75 (91) 98 09/23/18 16:00 97.8 78 20 128/78 (95) 99 Intake and Output 09/23/18 09/24/18 19:00 07:00 Intake Total 720 ml 840 ml Balance 720 ml 840 ml Intake Oral 720 ml 840 ml # Voids 3 4 Current Medications Medications (Trade) Dose Ordered Sig/Yoan Route PRN Reason Start Time Stop Time Status Last Admin Dose Admin Acetaminophen (Tylenol) 650 mg Q4H PRN ORAL Mild Pain/Temp > 100.5 09/19/18 20:30 10/19/18 04:29 Aspirin (ASA) 81 mg DAILY ORAL 09/20/18 09:00 10/19/18 08:59 09/24/18 09:48 Benztropine Mesylate (Cogentin) 1 mg DAILY ORAL 09/20/18 09:00 10/19/18 08:59 09/24/18 09:48 Divalproex Sodium (Depakote ER) 1,000 mg BEDTIME ORAL 09/21/18 21:00 10/21/18 20:59 09/23/18 21:25 Lorazepam (Ativan 2mg/ml 1ml) 1 mg Q3H PRN IV MILD ANXIETY 09/21/18 15:00 09/28/18 14:59 Risperidone (RisperDAL) 2 mg BEDTIME ORAL 09/21/18 21:00 10/21/18 20:59 09/23/18 21:25 Junior Landaverde MD Sep 24, 2018 14:42
[2018-09-24 16:00] VITALS: BP 125/81
--- NOTE | 2018-09-24 16:07 | General Progress Note ---
Assessment/Plan Problem List: (1) Schizoaffective disorder ICD Codes: F25.9 - Schizoaffective disorder, unspecified SNOMED: 09830664 (2) Marijuana use ICD Codes: F12.90 - Cannabis use, unspecified, uncomplicated SNOMED: 219551046 Status: stable Assessment/Plan depakote er 1000mg qhs risperdal 2mg qhs the pt lacks capacity to refuse meds/nor leave ama dw sister Subjective Neurologic/Psychiatric: Reports: anxiety, depressed, emotional problems Allergies: Coded Allergies: UNABLE TO ASSESS (Unverified , 09/18/18) Subjective the pt was in bed. no aggressive behavior. the pt refusing some care. poor cognition poor insight Objective Last 24 Hour Vital Signs Date Time Temp Pulse Resp B/P (MAP) Pulse Ox O2 Delivery O2 Flow Rate FiO2 09/24/18 12:00 97.8 80 19 123/74 (90) 97 09/24/18 09:00 Room Air 09/24/18 08:00 98.3 72 20 122/75 (91) 98 09/24/18 04:00 98.2 77 20 132/74 (93) 98 09/24/18 00:00 98.3 85 20 123/73 (90) 97 09/23/18 21:00 Room Air 09/23/18 20:00 97.5 79 20 123/75 (91) 98 Intake and Output 09/23/18 09/24/18 18:59 06:59 Intake Total 720 ml 840 ml Balance 720 ml 840 ml Intake Oral 720 ml 840 ml # Voids 3 4 Height (Feet): 5 Height (Inches): 10.00 Weight (Pounds): 250 General Appearance: alert Neurologic: oriented x 3, depressed affect Rola Reno MD Sep 24, 2018 16:07
--- NOTE | 2018-09-24 19:09 | NUR ---
HAND-OFF: Report given to ENE Ha. Pt left in stable condition, a/o x 1. Pt ambulates around unit without problems. No IV access, pt refuses.
--- NOTE | 2018-09-24 19:20 | NUR ---
NURSE NOTES:Patient received from Lisa Holliday . Patient laying in bed . patient denies any pain at this time . no sob/ no n/v noted at this time . safety maintained . call light within reach . bed in low position at all times . will continue to monitor.
[2018-09-24 20:00] VITALS: BP 136/77
[2018-09-24] MEDS: Depakote ER 500mg tab ORAL SCH (20:27)
[2018-09-25] VITALS: BP 138/82
[2018-09-25 04:00] VITALS: BP 135/82
--- NOTE | 2018-09-25 07:30 | NUR ---
HAND-OFF: Report given to Tana Holliday
--- NOTE | 2018-09-25 07:55 | NUR ---
NURSE NOTES: ASLEEP. IN NO APPARENT DISTRESS.
[2018-09-25 08:00] VITALS: BP 100/64
--- NOTE | 2018-09-25 08:06 | NUR ---
RD ASSESSMENT & RECOMMENDATIONS SEE CARE ACTIVITY FOR COMPLETE ASSESSMENT DAILY ESTIMATED NEEDS: Needs based on general/ 85kg abw 25-30 kcals/kg 3179-6461 total kcals 0.8-1.0 g protein/kg 68-85 g total protein 25-30 mL/kg 9320-5946 total fluid mLs NUTRITION DIAGNOSIS: Altered nutrition related lab values R/T diabetes? hyperglycemia as evidenced by elev BG of 244 and 3+ urine glucose upon adm, no updated lab available. CURRENT DIET:REGULAR PO DIET RECOMMENDATIONS: CCHO MED/ texture as tolerated ADDITIONAL RECOMMENDATIONS: * Standing wt for accurate CBW * A1C for eval of glycemic control- BG 244 upon adm * F/u BMP and CBC as able- not updated since 09/18 * Monitor BGs, need for carb controlled diet and hypoglycemic agents
[2018-09-25] MEDS: Benztropine 1mg tab ORAL SCH (09:19)
[2018-09-25] MEDS: Aspirin Baby 81mg ORAL SCH (09:19)
[2018-09-25 12:00] VITALS: BP 123/62
--- NOTE | 2018-09-25 15:39 | Pulmonology Progress Note ---
Assessment/Plan Assessment/Plan Pulmonary Progress Note Assessment/Plan Assessment/Plan IMPRESSION hematuria acute encephalopathy +marijuana PLAN psychiatry following awaiting safe discharge family refusing to take patient impression, plan, and exam edited and reviewed in detail care discussed with RN Subjective Allergies: Coded Allergies: UNABLE TO ASSESS (Unverified , 09/18/18) Subjective awaiting dc psych called Objective Vital Signs Noted Height (Feet): 5 Height (Inches): 10.00 Weight (Pounds): 250 Objective WDWN NAD clear breath sounds bilaterally without rhonchi or wheeze [id number] without MRG NABS nontender no HSM no CCE nonfocal Subjective ROS Limited/Unobtainable: No Allergies: Coded Allergies: UNABLE TO ASSESS (Unverified , 09/18/18) Objective Last 24 Hour Vital Signs Date Time Temp Pulse Resp B/P (MAP) Pulse Ox O2 Delivery O2 Flow Rate FiO2 09/25/18 12:00 98.2 62 20 123/62 (82) 100 09/25/18 09:00 Room Air 09/25/18 08:00 97.4 63 17 100/64 (76) 100 09/25/18 04:00 98.3 79 20 135/82 (99) 97 09/25/18 00:00 98.2 85 20 138/82 (100) 97 09/24/18 21:00 Room Air 09/24/18 20:00 97.6 82 20 136/77 (96) 97 09/24/18 16:00 98.4 82 20 125/81 (96) 96 Intake and Output 09/24/18 09/25/18 19:00 07:00 Intake Total 1370 ml 900 ml Balance 1370 ml 900 ml Intake Oral 1370 ml 900 ml # Voids 2 4 Current Medications Medications (Trade) Dose Ordered Sig/Yoan Route PRN Reason Start Time Stop Time Status Last Admin Dose Admin Acetaminophen (Tylenol) 650 mg Q4H PRN ORAL Mild Pain/Temp > 100.5 09/19/18 20:30 10/19/18 04:29 Aspirin (ASA) 81 mg DAILY ORAL 09/20/18 09:00 10/19/18 08:59 09/25/18 09:19 Benztropine Mesylate (Cogentin) 1 mg DAILY ORAL 09/20/18 09:00 10/19/18 08:59 09/25/18 09:19 Divalproex Sodium (Depakote ER) 1,000 mg BEDTIME ORAL 09/21/18 21:00 10/21/18 20:59 09/24/18 20:27 Lorazepam (Ativan 2mg/ml 1ml) 1 mg Q3H PRN IV MILD ANXIETY 09/21/18 15:00 09/28/18 14:59 Risperidone (RisperDAL) 2 mg BEDTIME ORAL 09/21/18 21:00 10/21/18 20:59 09/24/18 20:27 Junior Landaverde MD Sep 25, 2018 15:39
[2018-09-25 16:00] VITALS: BP 128/84
--- NOTE | 2018-09-25 18:59 | NUR ---
NURSE NOTES: RESTING IN BED. IN NO DISTRESS.
--- NOTE | 2018-09-25 19:28 | NUR ---
NURSE NOTES:Patient received from Tana Holliday no s/s distress . no sob / no n/v noted. eating Dinner . call light within reach . bed in low position at all times . will continue to monitor.
--- NOTE | 2018-09-25 19:28 | NUR ---
HAND-OFF: Report given to Ben BARAJAS LVN.
[2018-09-25 20:00] VITALS: BP 114/83
[2018-09-25] MEDS: Depakote ER 500mg tab ORAL SCH (21:29)
--- NOTE | 2018-09-25 23:36 | General Progress Note ---
Assessment/Plan Problem List: (1) Schizoaffective disorder ICD Codes: F25.9 - Schizoaffective disorder, unspecified SNOMED: 24295346 (2) Marijuana use ICD Codes: F12.90 - Cannabis use, unspecified, uncomplicated SNOMED: 760078032 Assessment/Plan depakote er 1000mg qhs risperdal 2mg qhs the pt lacks capacity to refuse meds/nor leave ama dw sister Subjective Neurologic/Psychiatric: Reports: anxiety Allergies: Coded Allergies: UNABLE TO ASSESS (Unverified , 09/18/18) Subjective poor cognition poor insight Objective Last 24 Hour Vital Signs Date Time Temp Pulse Resp B/P (MAP) Pulse Ox O2 Delivery O2 Flow Rate FiO2 09/25/18 21:00 Room Air 09/25/18 16:00 98.5 72 14 128/84 (99) 97 09/25/18 12:00 98.2 62 20 123/62 (82) 100 09/25/18 09:00 Room Air 09/25/18 08:00 97.4 63 17 100/64 (76) 100 09/25/18 04:00 98.3 79 20 135/82 (99) 97 09/25/18 00:00 98.2 85 20 138/82 (100) 97 Intake and Output 09/24/18 09/25/18 18:59 06:59 Intake Total 1370 ml 900 ml Balance 1370 ml 900 ml Intake Oral 1370 ml 900 ml # Voids 2 4 Height (Feet): 5 Height (Inches): 10.00 Weight (Pounds): 250 General Appearance: no apparent distress, alert Neurologic: responsive, depressed affect Rola Reno MD Sep 25, 2018 23:36
[2018-09-26] VITALS (7 sets, daily range): BP systolic 100–140; BP diastolic 54–87
--- NOTE | 2018-09-26 07:22 | NUR ---
NURSE NOTES: ASLEEP. IN NO APPARENT DISTRESS.
--- NOTE | 2018-09-26 07:45 | NUR ---
HAND-OFF: Report given to Keil Holliday Addendum: 09/26/18 at 0803 by EMILIANA BARAJAS LVN Report given to CRIS Holliday
[2018-09-26] MEDS: Aspirin Baby 81mg ORAL SCH (09:01)
[2018-09-26] MEDS: Benztropine 1mg tab ORAL SCH (09:01)
--- NOTE | 2018-09-26 16:36 | NUR ---
CASE MANAGEMENT: REVIEW 09/25/2018 SI: AMS T 98.2 HR 77 RR 18 B/P 114/83 SATS 98% ON RA NO LABS TODAY IS: ASA PO QD COGENTIN PO QD RISPERDAL PO QHS DEPAKOTE PO QHS MED/SURG STATUS DCP: SNF PLACEMENT 09/26/2018 SI: AMS T 98 HR 80 RR 20 B/P 134/74 SATS 99% ON RA NO LABS TODAY IS: ASA PO QD COGENTIN PO QD RISPERDAL PO QHS DEPAKOTE PO QHS MED/SURG STATUS DCP: SNF PLACEMENT
--- NOTE | 2018-09-26 18:44 | Pulmonology Progress Note ---
Assessment/Plan Assessment/Plan Pulmonary Progress Note Assessment/Plan Assessment/Plan IMPRESSION hematuria acute encephalopathy improving +marijuana PLAN psychiatry following awaiting safe discharge family refusing to take patient impression, plan, and exam edited and reviewed in detail care discussed with RN Subjective Allergies: Coded Allergies: UNABLE TO ASSESS (Unverified , 09/18/18) Subjective awaiting dc psych called Objective Vital Signs Noted Height (Feet): 5 Height (Inches): 10.00 Weight (Pounds): 250 Objective WDWN NAD clear breath sounds bilaterally without rhonchi or wheeze [id number] without MRG NABS nontender no HSM no CCE nonfocal Subjective ROS Limited/Unobtainable: No Allergies: Coded Allergies: UNABLE TO ASSESS (Unverified , 09/18/18) Objective Last 24 Hour Vital Signs Date Time Temp Pulse Resp B/P (MAP) Pulse Ox O2 Delivery O2 Flow Rate FiO2 09/26/18 16:00 98.0 80 20 134/74 (94) 99 09/26/18 14:25 99.2 82 18 140/68 (92) 98 09/26/18 12:00 97.9 86 20 129/74 (92) 98 09/26/18 08:30 98.0 62 20 100/54 (69) 99 09/26/18 08:19 Room Air 09/26/18 04:00 97.7 77 20 128/87 (101) 98 09/26/18 00:00 97.8 78 18 130/83 (99) 97 09/25/18 21:00 Room Air 09/25/18 20:00 98.2 77 18 114/83 (93) 98 Intake and Output 09/25/18 09/26/18 19:00 07:00 Intake Total 1290 ml 640 ml Balance 1290 ml 640 ml Intake Oral 1290 ml 640 ml # Voids 4 4 Current Medications Medications (Trade) Dose Ordered Sig/Yoan Route PRN Reason Start Time Stop Time Status Last Admin Dose Admin Acetaminophen (Tylenol) 650 mg Q4H PRN ORAL Mild Pain/Temp > 100.5 09/19/18 20:30 10/19/18 04:29 Aspirin (ASA) 81 mg DAILY ORAL 09/20/18 09:00 10/19/18 08:59 09/26/18 09:01 Benztropine Mesylate (Cogentin) 1 mg DAILY ORAL 09/20/18 09:00 10/19/18 08:59 09/26/18 09:01 Divalproex Sodium (Depakote ER) 1,000 mg BEDTIME ORAL 09/21/18 21:00 10/21/18 20:59 09/25/18 21:29 Lorazepam (Ativan 2mg/ml 1ml) 1 mg Q3H PRN IV MILD ANXIETY 09/21/18 15:00 09/28/18 14:59 Risperidone (RisperDAL) 2 mg BEDTIME ORAL 09/21/18 21:00 10/21/18 20:59 09/25/18 21:29 Junior Landaverde MD Sep 26, 2018 18:44
--- NOTE | 2018-09-26 18:58 | NUR ---
NURSE NOTES: resting . in no distress.condition stable.
--- NOTE | 2018-09-26 19:30 | NUR ---
NURSE NOTES: RECEIVED PATIENT LYING IN BED, AWAKE, ALERT/ORIENTED TO PERSON/PLACE,REALITY ORIENTATION PROVIDED DURING ASSESSMENT, DENIES PAIN, NO SIGNS AND SYMPTOMS OF ACUTE CARDIO RESPIRATORY DISTRESS/SHORTNESS OF BREATH, NO PERIPHERAL EDEMA NOTED. RECEIVED WITHOUT IV ACCESS, MD AWARE. NO COMPLAINTS OF GI DISCOMFORT, BOWEL SOUNDS AUDIBLE, CONTINENT OF B/B, BATHROOM PRIVILEGES. SIDE RAILS UP X2 FOR MOBILITY, BED IN LOWEST POSITION FOR SAFETY. CALL LIGHT WITHIN REACH. NAD. FREQUENT ROUNDING FOR SAFETY .
--- NOTE | 2018-09-26 19:32 | NUR ---
HAND-OFF: Report given to Mikal GONZALES LVN.
[2018-09-26] MEDS: Depakote ER 500mg tab ORAL SCH (21:24)
--- NOTE | 2018-09-26 21:40 | General Progress Note ---
Assessment/Plan Problem List: (1) Schizoaffective disorder ICD Codes: F25.9 - Schizoaffective disorder, unspecified SNOMED: 72624000 (2) Marijuana use ICD Codes: F12.90 - Cannabis use, unspecified, uncomplicated SNOMED: 178442735 Assessment/Plan depakote er 1000mg qhs risperdal 2mg qhs the pt lacks capacity to refuse meds/nor leave ama dw sister Subjective Neurologic/Psychiatric: Reports: anxiety, depressed, emotional problems Allergies: Coded Allergies: UNABLE TO ASSESS (Unverified , 09/18/18) Subjective poor cognition poor insight Objective Last 24 Hour Vital Signs Date Time Temp Pulse Resp B/P (MAP) Pulse Ox O2 Delivery O2 Flow Rate FiO2 09/26/18 20:00 97.6 78 20 129/76 (93) 98 09/26/18 16:00 98.0 80 20 134/74 (94) 99 09/26/18 14:25 99.2 82 18 140/68 (92) 98 09/26/18 12:00 97.9 86 20 129/74 (92) 98 09/26/18 08:30 98.0 62 20 100/54 (69) 99 09/26/18 08:19 Room Air 09/26/18 04:00 97.7 77 20 128/87 (101) 98 09/26/18 00:00 97.8 78 18 130/83 (99) 97 Intake and Output 09/25/18 09/26/18 18:59 06:59 Intake Total 1290 ml 640 ml Balance 1290 ml 640 ml Intake Oral 1290 ml 640 ml # Voids 4 4 Height (Feet): 5 Height (Inches): 10.00 Weight (Pounds): 250 Rola Reno MD Sep 26, 2018 21:40
[2018-09-27] VITALS: BP 134/71
--- NOTE | 2018-09-27 01:46 | NUR ---
NURSE NOTES: RESTING COMFORTABLE, NO DISTRESS NOTED.
[2018-09-27 04:00] VITALS: BP 101/55
--- NOTE | 2018-09-27 06:21 | NUR ---
NURSE NOTES: RESTED WELL, NO SIGNIFICANT CHANGE OF CONDITION NOTED THROUGHOUT THE NIGHT. SAFETY MAINTAINED. NAD.
--- NOTE | 2018-09-27 06:21 | NUR ---
NURSE NOTES: NO BEHAVIORAL ISSUES NOTED.
--- NOTE | 2018-09-27 07:49 | NUR ---
HAND-OFF: Report given to ENE MAIN.
--- NOTE | 2018-09-27 07:51 | General Progress Note ---
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) PLAN psych noted awaiting safe discharge family refusing to take patient impression, plan, and exam edited and reviewed in detail care discussed with RN Subjective Allergies: Coded Allergies: UNABLE TO ASSESS (Unverified , 09/18/18) Subjective awaiting dc psych noted Objective Last 24 Hour Vital Signs Date Time Temp Pulse Resp B/P (MAP) Pulse Ox O2 Delivery O2 Flow Rate FiO2 09/27/18 04:00 97.9 64 101/55 (70) 97 09/27/18 00:00 97.3 82 20 134/71 (92) 99 09/26/18 21:00 Room Air 09/26/18 20:00 97.6 78 20 129/76 (93) 98 09/26/18 16:00 98.0 80 20 134/74 (94) 99 09/26/18 14:25 99.2 82 18 140/68 (92) 98 09/26/18 12:00 97.9 86 20 129/74 (92) 98 09/26/18 08:30 98.0 62 20 100/54 (69) 99 09/26/18 08:19 Room Air Intake and Output 09/26/18 09/27/18 19:00 07:00 Intake Total 1400 ml 600 ml Balance 1400 ml 600 ml Intake Oral 1400 ml 600 ml # Voids 3 2 Height (Feet): 5 Height (Inches): 10.00 Weight (Pounds): 250 Objective WDWN NAD clear breath sounds bilaterally without rhonchi or wheeze [id number] without MRG NABS nontender no HSM no CCE nonfocal Chase Boswell MD Sep 27, 2018 07:51
--- NOTE | 2018-09-27 07:53 | NUR ---
NURSE NOTES: Received report from Marisabel. Patient asleep. Bed in lowest position and call light within reach. Will continue to monitor.
[2018-09-27 08:00] VITALS: BP 119/71
[2018-09-27] MEDS: Aspirin Baby 81mg ORAL SCH (09:11)
[2018-09-27] MEDS: Benztropine 1mg tab ORAL SCH (09:11)
--- NOTE | 2018-09-27 09:39 | NUR ---
Social Service Note Follow up call placed to [facility] [phone] and spoke with Ashlee. Patient sill on wait list and has been approved for PET evaluation once bed is available. No beds at [facility] [phone] No beds at [facility] [phone] CM working with insurance for locked placement.
[2018-09-27 12:00] VITALS: BP 114/71
[2018-09-27 16:00] VITALS: BP 128/73
--- NOTE | 2018-09-27 18:08 | Cardiology Report ---
APPROVED REPORT EKG Measurement Heart [id number] FL [id number] [id number] [id number] DGp803 Sinus tachycardia Cannot rule out Inferior infarct, age undetermined Abnormal ECG
--- NOTE | 2018-09-27 19:24 | NUR ---
HAND-OFF: Report given to GUILHERME Mercedes.
--- NOTE | 2018-09-27 19:24 | NUR ---
NURSE NOTES:Patient received from Lesly Holliday patient in bed . patient denies any pain at this time . no s/s of distress . no behavioral issues at this time . call light within reach . bed in low position at all times . will continue to monitor.
[2018-09-27 20:00] VITALS: BP 148/74
[2018-09-27] MEDS: Depakote ER 500mg tab ORAL SCH (21:15)
[2018-09-28] VITALS: BP 144/79
[2018-09-28 04:00] VITALS: BP 141/76
--- NOTE | 2018-09-28 07:20 | NUR ---
NURSE NOTES: WALKING ROUNDS DONE WITH OUTGOING RN.PATIENT ASLEEP IN BED. CALL LIGHT WITHIN REACH.BED IN LOW AND LOCKED POSITION.
--- NOTE | 2018-09-28 07:20 | NUR ---
HAND-OFF: Report given to therese Cedeno Patient in stable condition.
--- NOTE | 2018-09-28 07:39 | General Progress Note ---
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) PLAN psych noted awaiting safe discharge family refusing to take patient impression, plan, and exam edited and reviewed in detail care discussed with RN Subjective Allergies: Coded Allergies: UNABLE TO ASSESS (Unverified , 09/18/18) Subjective awaiting dc psych noted Objective Last 24 Hour Vital Signs Date Time Temp Pulse Resp B/P (MAP) Pulse Ox O2 Delivery O2 Flow Rate FiO2 09/28/18 04:00 98.4 88 19 141/76 (97) 98 09/28/18 00:00 98.4 88 19 144/79 (100) 99 09/27/18 21:00 Room Air 09/27/18 20:00 98.3 82 18 148/74 (98) 99 09/27/18 16:00 98.0 76 18 128/73 (91) 100 09/27/18 12:00 98.0 73 18 114/71 (85) 100 09/27/18 09:00 Room Air 09/27/18 08:00 97.9 68 18 119/71 (87) 98 Intake and Output 09/27/18 09/28/18 19:00 07:00 Intake Total 500 ml 860 ml Balance 500 ml 860 ml Intake Oral 500 ml 860 ml # Voids 3 4 Height (Feet): 5 Height (Inches): 10.00 Weight (Pounds): 250 Objective WDWN NAD clear breath sounds bilaterally without rhonchi or wheeze [id number] without MRG NABS nontender no HSM no CCE nonfocal Chase Boswell MD Sep 28, 2018 07:39
[2018-09-28 08:00] VITALS: BP 118/78
[2018-09-28] MEDS: Aspirin Baby 81mg ORAL SCH (08:14)
[2018-09-28] MEDS: Benztropine 1mg tab ORAL SCH (08:14)
[2018-09-28 12:00] VITALS: BP 114/75
--- NOTE | 2018-09-28 14:40 | NUR ---
CASE MANAGEMENT: REVIEW SI: AMS T 97.6 HR 69 RR 20 BP 144/79 SAT 98% ROOM AIR IS: ASA PO QD COGENTIN PO QD DEPAKOTE ER PO QHS MED/SURG STATUS DCP: SEEKING SNF PLACEMENT
--- NOTE | 2018-09-28 14:45 | NUR ---
INSURANCE [employer] TABLE HAND: CHRIS Wellington#: [phone] F#: [phone]
[2018-09-28 16:00] VITALS: BP 114/71
--- NOTE | 2018-09-28 16:26 | NUR ---
CASE MANAGEMENT: DCPNOTE PATIENT REFERRED TO: [facility] [phone] PH / [phone] FAX [facility] [phone] PH / [phone] [phone] PH / [phone] FAX [facility] [phone] PH / [phone] FAX [facility] [phone] PH / [phone] FAX WILL FOLLOW UP Addendum: 09/29/18 at 1557 by RYASHAWN SHIN ALL OF THE PREVIOUS FACILITIES DECLINED THE PATIENT SPOKE WITH: TENA @ [facility] @ [facility] @ [facility] @ [place] VA[facility]ALI NIKITA @ [facility]
--- NOTE | 2018-09-28 19:00 | NUR ---
NURSE NOTES:Patient received in bed . patient denies any pain at this time . no s/s of distress at this time. call light within reach . Bed in low position at all times . will continue to monitor.
--- NOTE | 2018-09-28 19:15 | NUR ---
HAND-OFF: Report given to EMILIANA BARAJAS LVN.
[2018-09-28 20:00] VITALS: BP 123/75
[2018-09-28] MEDS: Depakote ER 500mg tab ORAL SCH (20:24)
--- NOTE | 2018-09-28 23:48 | General Progress Note ---
Assessment/Plan Problem List: (1) Schizoaffective disorder ICD Codes: F25.9 - Schizoaffective disorder, unspecified SNOMED: 77973383 (2) Marijuana use ICD Codes: F12.90 - Cannabis use, unspecified, uncomplicated SNOMED: 487664186 Status: stable Assessment/Plan depakote er 1000mg qhs risperdal 2mg qhs the pt lacks capacity to refuse meds/nor leave ama dw sister Subjective Neurologic/Psychiatric: Reports: anxiety, depressed, emotional problems Allergies: Coded Allergies: UNABLE TO ASSESS (Unverified , 09/18/18) Subjective the pt is not agitated nor aggressive Objective Last 24 Hour Vital Signs Date Time Temp Pulse Resp B/P (MAP) Pulse Ox O2 Delivery O2 Flow Rate FiO2 09/28/18 21:00 Room Air 09/28/18 20:00 98.1 81 18 123/75 (91) 97 09/28/18 16:00 97.9 68 20 114/71 (85) 100 09/28/18 12:00 97.6 69 20 114/75 (88) 97 09/28/18 09:00 Room Air 09/28/18 08:00 97.9 75 19 118/78 (91) 98 09/28/18 04:00 98.4 88 19 141/76 (97) 98 09/28/18 00:00 98.4 88 19 144/79 (100) 99 Intake and Output 09/27/18 09/28/18 19:00 07:00 Intake Total 500 ml 860 ml Balance 500 ml 860 ml Intake Oral 500 ml 860 ml # Voids 3 4 Height (Feet): 5 Height (Inches): 10.00 Weight (Pounds): 250 General Appearance: no apparent distress, alert Neurologic: responsive, depressed affect Rola Reno MD Sep 28, 2018 23:48
[2018-09-29] VITALS: BP 130/77
[2018-09-29 04:00] VITALS: BP 134/78
--- NOTE | 2018-09-29 07:35 | NUR ---
NURSE NOTES: UP IN CHAIR EATING BREAKFAST. NO C/O PAIN. IN NO DISTRESS.
--- NOTE | 2018-09-29 07:45 | NUR ---
HAND-OFF: Report given to Tana Holliday Patient in stable condition.
[2018-09-29 08:00] VITALS: BP 123/80
[2018-09-29] MEDS: Aspirin Baby 81mg ORAL SCH (08:28)
[2018-09-29] MEDS: Benztropine 1mg tab ORAL SCH (08:28)
[2018-09-29 12:00] VITALS: BP 121/77
--- NOTE | 2018-09-29 15:57 | NUR ---
CASE MANAGEMENT: DCPNOTE PATIENT REFERRED TO: [facility] [phone] [facility] [phone] [facility] [phone] [facility] [phone] [facility] [phone] [facility] [phone] [facility] [phone] [facility] [phone] [facility] [phone] [facility] [phone] [facility] [phone]
--- NOTE | 2018-09-29 15:58 | Pulmonology Progress Note ---
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) PLAN psych noted awaiting safe discharge family refusing to take patient impression, plan, and exam edited and reviewed in detail care discussed with RN Subjective Allergies: Coded Allergies: UNABLE TO ASSESS (Unverified , 09/18/18) Subjective awaiting dc psych called Objective Vital Signs Noted Height (Feet): 5 Height (Inches): 10.00 Weight (Pounds): 250 Objective WDWN NAD clear breath sounds bilaterally without rhonchi or wheeze [id number] without MRG NABS nontender no HSM no CCE nonfocal Subjective ROS Limited/Unobtainable: No Allergies: Coded Allergies: UNABLE TO ASSESS (Unverified , 09/18/18) Objective Last 24 Hour Vital Signs Date Time Temp Pulse Resp B/P (MAP) Pulse Ox O2 Delivery O2 Flow Rate FiO2 09/29/18 12:00 98.6 114 18 121/77 (92) 99 09/29/18 08:23 Room Air 09/29/18 08:00 98.0 104 18 123/80 (94) 99 09/29/18 04:00 98.2 80 18 134/78 (96) 99 09/29/18 00:00 98.5 84 18 130/77 (94) 97 09/28/18 21:00 Room Air 09/28/18 20:00 98.1 81 18 123/75 (91) 97 09/28/18 16:00 97.9 68 20 114/71 (85) 100 Intake and Output 09/28/18 09/29/18 19:00 07:00 Intake Total 960 ml 880 ml Balance 960 ml 880 ml Intake Oral 960 ml 880 ml # Voids 4 4 Current Medications Medications (Trade) Dose Ordered Sig/Yoan Route PRN Reason Start Time Stop Time Status Last Admin Dose Admin Acetaminophen (Tylenol) 650 mg Q4H PRN ORAL Mild Pain/Temp > 100.5 09/19/18 20:30 10/19/18 04:29 Aspirin (ASA) 81 mg DAILY ORAL 09/20/18 09:00 10/19/18 08:59 09/29/18 08:28 Benztropine Mesylate (Cogentin) 1 mg DAILY ORAL 09/20/18 09:00 10/19/18 08:59 09/29/18 08:28 Divalproex Sodium (Depakote ER) 1,000 mg BEDTIME ORAL 09/21/18 21:00 10/21/18 20:59 09/28/18 20:24 Risperidone (RisperDAL) 2 mg BEDTIME ORAL 09/29/18 21:00 10/21/18 20:59 Junior Landaverde MD Sep 29, 2018 15:58
[2018-09-29 16:00] VITALS: BP 125/76
--- NOTE | 2018-09-29 16:07 | NUR ---
CASE MANAGEMENT: REVIEW SI: AMS T 98.6 HR 114 RR 18 BP 121/77 SAT 99% ROOM AIR IS: ASA PO QD COGENTIN PO QD DEPAKOTE ER PO QHS MED/SURG STATUS DCP: SEEKING SNF PLACEMENT
--- NOTE | 2018-09-29 19:00 | NUR ---
NURSE NOTES: ASLEEP. CONDITION STABLE. IN NO DSITRESS.
--- NOTE | 2018-09-29 19:24 | NUR ---
HAND-OFF: Report given to Stefan CANTRELL RN.
--- NOTE | 2018-09-29 19:30 | NUR ---
NURSE NOTES: Patient ambulating in the room, no complaint of pain at this time, not in respiratory distress. Instructed the use of call light. Call light and needs in reach. Bed in lowest position and lock engaged. Will continue to monitor.
[2018-09-29 20:00] VITALS: BP 118/73
[2018-09-29] MEDS: Depakote ER 500mg tab ORAL SCH (20:05)
--- NOTE | 2018-09-29 21:10 | General Progress Note ---
Assessment/Plan Problem List: (1) Schizoaffective disorder ICD Codes: F25.9 - Schizoaffective disorder, unspecified SNOMED: 09820387 (2) Marijuana use ICD Codes: F12.90 - Cannabis use, unspecified, uncomplicated SNOMED: 311763205 Assessment/Plan depakote er 1000mg qhs risperdal 2mg qhs the pt lacks capacity to refuse meds/nor leave ama dw sister Subjective Neurologic/Psychiatric: Reports: anxiety, depressed, emotional problems Allergies: Coded Allergies: UNABLE TO ASSESS (Unverified , 09/18/18) Subjective the pt is not agitated nor aggressive Objective Last 24 Hour Vital Signs Date Time Temp Pulse Resp B/P (MAP) Pulse Ox O2 Delivery O2 Flow Rate FiO2 09/29/18 20:45 Room Air 09/29/18 16:00 97.9 80 19 125/76 (92) 99 09/29/18 12:00 98.6 114 18 121/77 (92) 99 09/29/18 08:23 Room Air 09/29/18 08:00 98.0 104 18 123/80 (94) 99 09/29/18 04:00 98.2 80 18 134/78 (96) 99 09/29/18 00:00 98.5 84 18 130/77 (94) 97 Intake and Output 09/28/18 09/29/18 19:00 07:00 Intake Total 960 ml 880 ml Balance 960 ml 880 ml Intake Oral 960 ml 880 ml # Voids 4 4 Height (Feet): 5 Height (Inches): 10.00 Weight (Pounds): 250 General Appearance: no apparent distress, alert Rola Reno MD Sep 29, 2018 21:10
[2018-09-30] VITALS: BP 120/71
[2018-09-30 04:00] VITALS: BP 119/75
--- NOTE | 2018-09-30 07:24 | NUR ---
HAND-OFF: Report given to ENE Fajardo.
--- NOTE | 2018-09-30 07:39 | NUR ---
NURSE NOTES: asleep. in no distress.
[2018-09-30 08:00] VITALS: BP 137/86
[2018-09-30] MEDS: Benztropine 1mg tab ORAL SCH (08:37)
[2018-09-30] MEDS: Aspirin Baby 81mg ORAL SCH (08:37)
--- NOTE | 2018-09-30 11:55 | General Progress Note ---
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) PLAN psych noted awaiting safe discharge family refusing to take patient impression, plan, and exam edited and reviewed in detail care discussed with RN Subjective Allergies: Coded Allergies: UNABLE TO ASSESS (Unverified , 09/18/18) Subjective awaiting dc psych noted Objective Last 24 Hour Vital Signs Date Time Temp Pulse Resp B/P (MAP) Pulse Ox O2 Delivery O2 Flow Rate FiO2 09/30/18 09:22 Room Air 09/30/18 08:00 98.3 97 18 137/86 (103) 96 09/30/18 04:00 97.9 67 18 119/75 (90) 100 09/30/18 00:00 98.3 74 18 120/71 (87) 98 09/29/18 20:45 Room Air 09/29/18 20:00 97.9 74 18 118/73 (88) 99 09/29/18 16:00 97.9 80 19 125/76 (92) 99 09/29/18 12:00 98.6 114 18 121/77 (92) 99 Intake and Output 09/29/18 09/30/18 18:59 06:59 Intake Total 1750 ml 400 ml Balance 1750 ml 400 ml Intake Oral 1750 ml 400 ml # Voids 5 2 # Bowel Movements 1 Height (Feet): 5 Height (Inches): 10.00 Weight (Pounds): 250 Objective WDWN NAD clear breath sounds bilaterally without rhonchi or wheeze [id number] without MRG NABS nontender no HSM no CCE nonfocal Chase Boswell MD Sep 30, 2018 11:55
[2018-09-30 12:00] VITALS: BP 107/67
--- NOTE | 2018-09-30 13:37 | NUR ---
INSURANCE ALL CLINICALS AND REVIEWS FACED TO: [employer] MEDICAL ATTENDANT: CHRIS Wellington#: [phone] F#: [phone]
[2018-09-30 16:00] VITALS: BP 100/58
--- NOTE | 2018-09-30 17:49 | NUR ---
Social Service Note GIOVANNI followed up with Rosalinda regarding placement in a secured facility. At this time patient would not meet with criteria for acute inpatient psych treatment. Rosalinda inquired if patient could return to [facility]. GIOVANNI explained again that this facility will not accept patient due to patient violent, non-payment from health plan and wandering from facility. Rosalinda suggested another housing program that they are contacted with through [facility]. GIOVANNI is familiar with with [facility] (people assisting the homeless) GIOVANNI explained that the program would need to provide secured environment as patient was a missing person for over a week on [address]. GIOVANNI informed Rosalinda patient resided in a locked SNF [facility] for 10 years and then [facility] another SNF and hospitalized at [facility] for 1 1/2 months then placed at [facility]. GIOVANNI explain to Rosalinda sister is not only worried about patient but about others if placement is not appropriate. GIOVANNI discussed SU[facility] with locked units. Rosalinda indicating she will review CM documentation of referrals to contracted provided and if list is exhausted then she can request an [facility] through her customer facilities supervisor. GIOVANNI provided possible options such as [facility] [facility] and [facility]. GIOVANNI contacted [facility] which is now [place] [phone]. Per Em no beds at this time but review can be faxed to [phone]. [facility] will be required. Reviews and clinical information faxed to Rosalinda [phone] multiple times and Rosalinda continues to denies she receives. GIOVANNI requested an alternative number. Rosalinda requesting specific time of fax. Call then transferred to CM coordinator. Will monitor and follow up.
--- NOTE | 2018-09-30 19:05 | NUR ---
NURSE NOTES: asleep. in no distress.
--- NOTE | 2018-09-30 19:05 | NUR ---
HAND-OFF: Report given to emmanuel ernandez rn.
--- NOTE | 2018-09-30 19:20 | NUR ---
NURSE NOTES: Received patient in no apparent distress. A&OX2 with slurred speech. Bed in lowest position. Call light within reach. Will continue to monitor.
[2018-09-30 20:00] VITALS: BP 122/82
[2018-09-30] MEDS: Depakote ER 500mg tab ORAL SCH (20:31)
[2018-10-01] VITALS: BP 149/91
--- NOTE | 2018-10-01 00:10 | General Progress Note ---
Assessment/Plan Problem List: (1) Schizoaffective disorder ICD Codes: F25.9 - Schizoaffective disorder, unspecified SNOMED: 38054797 (2) Marijuana use ICD Codes: F12.90 - Cannabis use, unspecified, uncomplicated SNOMED: 586324418 Assessment/Plan depakote er 1000mg qhs risperdal 2mg qhs the pt lacks capacity to refuse meds/nor leave ama dw sister Subjective Neurologic/Psychiatric: Reports: anxiety, depressed, emotional problems Allergies: Coded Allergies: UNABLE TO ASSESS (Unverified , 09/18/18) Subjective the pt is not agitated nor aggressive Objective Last 24 Hour Vital Signs Date Time Temp Pulse Resp B/P (MAP) Pulse Ox O2 Delivery O2 Flow Rate FiO2 09/30/18 21:00 Room Air 09/30/18 20:00 97.9 78 19 122/82 (95) 100 09/30/18 16:00 99.6 82 19 100/58 (72) 98 09/30/18 12:00 97.5 80 20 107/67 (80) 99 09/30/18 09:22 Room Air 09/30/18 08:00 98.3 97 18 137/86 (103) 96 09/30/18 04:00 97.9 67 18 119/75 (90) 100 Intake and Output 09/30/18 10/01/18 19:00 07:00 Intake Total 1600 ml Balance 1600 ml Intake Oral 1600 ml # Voids 1 Height (Feet): 5 Height (Inches): 10.00 Weight (Pounds): 250 General Appearance: no apparent distress, alert Neurologic: oriented x 3, responsive, depressed affect Rola Reno MD Oct 01, 2018 00:10
--- NOTE | 2018-10-01 01:15 | NUR ---
NURSE NOTES: Patient walking in [address], asking food, snack provided, reoriented. Patient went back to bed.
--- NOTE | 2018-10-01 02:49 | NUR ---
NURSE NOTES: Call and left message to Dr. Reno regarding HR 132. Waiting a call back.
[2018-10-01 04:00] VITALS: BP 120/77
--- NOTE | 2018-10-01 07:53 | NUR ---
HAND-OFF: Report given to Marah LUQUE.
[2018-10-01 08:00] VITALS: BP 133/78
--- NOTE | 2018-10-01 08:11 | NUR ---
NURSE NOTES: Received pt from ENE MEJÍA. Pt is confused and orient x1. No SOB or acute respiratory distress noted. pt has no iv access, Dr womack is aware. all needs attended, bed is locked and is in the lowest position. call light within easy reach. will continue to monitor.
[2018-10-01] MEDS: Aspirin Baby 81mg ORAL SCH (09:05)
[2018-10-01] MEDS: Benztropine 1mg tab ORAL SCH (09:06)
[2018-10-01 12:00] VITALS: BP 116/72
--- NOTE | 2018-10-01 12:33 | Pulmonology Progress Note ---
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) PLAN psych noted awaiting safe discharge family refusing to take patient impression, plan, and exam edited and reviewed in detail care discussed with RN Subjective Allergies: Coded Allergies: UNABLE TO ASSESS (Unverified , 09/18/18) Subjective awaiting dc psych called Objective Vital Signs Noted Height (Feet): 5 Height (Inches): 10.00 Weight (Pounds): 250 Objective WDWN NAD clear breath sounds bilaterally without rhonchi or wheeze [id number] without MRG NABS nontender no HSM no CCE nonfocal Subjective ROS Limited/Unobtainable: No Allergies: Coded Allergies: UNABLE TO ASSESS (Unverified , 09/18/18) Objective Last 24 Hour Vital Signs Date Time Temp Pulse Resp B/P (MAP) Pulse Ox O2 Delivery O2 Flow Rate FiO2 10/01/18 12:00 98.7 84 20 116/72 (87) 98 10/01/18 09:00 Room Air 10/01/18 08:00 98.7 83 20 133/78 (96) 100 10/01/18 04:00 97.8 109 19 120/77 (91) 95 10/01/18 00:00 98.2 132 19 149/91 (110) 99 09/30/18 21:00 Room Air 09/30/18 20:00 97.9 78 19 122/82 (95) 100 09/30/18 16:00 99.6 82 19 100/58 (72) 98 Intake and Output 09/30/18 10/01/18 18:59 06:59 Intake Total 1600 ml Balance 1600 ml Intake Oral 1600 ml # Voids 1 3 Current Medications Medications (Trade) Dose Ordered Sig/Yoan Route PRN Reason Start Time Stop Time Status Last Admin Dose Admin Acetaminophen (Tylenol) 650 mg Q4H PRN ORAL Mild Pain/Temp > 100.5 09/19/18 20:30 10/19/18 04:29 Aspirin (ASA) 81 mg DAILY ORAL 09/20/18 09:00 10/19/18 08:59 10/01/18 09:05 Benztropine Mesylate (Cogentin) 1 mg DAILY ORAL 09/20/18 09:00 10/19/18 08:59 10/01/18 09:06 Divalproex Sodium (Depakote ER) 1,000 mg BEDTIME ORAL 09/21/18 21:00 10/21/18 20:59 09/30/18 20:31 Risperidone (RisperDAL) 2 mg BEDTIME ORAL 09/29/18 21:00 10/21/18 20:59 09/30/18 20:31 Junior Landaverde MD Oct 01, 2018 12:33
--- NOTE | 2018-10-01 13:26 | General Progress Note ---
Assessment/Plan Problem List: (1) Schizoaffective disorder ICD Codes: F25.9 - Schizoaffective disorder, unspecified SNOMED: 05098163 (2) Marijuana use ICD Codes: F12.90 - Cannabis use, unspecified, uncomplicated SNOMED: 183014374 Status: stable Assessment/Plan Depakote er 1000mg qhs Risperdal 2mg qhs the pt lacks capacity to refuse meds/nor leave ama dw sister Subjective Neurologic/Psychiatric: Reports: anxiety Allergies: Coded Allergies: UNABLE TO ASSESS (Unverified , 09/18/18) Subjective the pt is not agitated nor aggressive the pt is not confused the pt is alert and oriented to person place and situation Objective Last 24 Hour Vital Signs Date Time Temp Pulse Resp B/P (MAP) Pulse Ox O2 Delivery O2 Flow Rate FiO2 10/01/18 12:00 98.7 84 20 116/72 (87) 98 10/01/18 09:00 Room Air 10/01/18 08:00 98.7 83 20 133/78 (96) 100 10/01/18 04:00 97.8 109 19 120/77 (91) 95 10/01/18 00:00 98.2 132 19 149/91 (110) 99 09/30/18 21:00 Room Air 09/30/18 20:00 97.9 78 19 122/82 (95) 100 09/30/18 16:00 99.6 82 19 100/58 (72) 98 Intake and Output 09/30/18 10/01/18 18:59 06:59 Intake Total 1600 ml Balance 1600 ml Intake Oral 1600 ml # Voids 1 3 Height (Feet): 5 Height (Inches): 10.00 Weight (Pounds): 250 General Appearance: no apparent distress, alert Neurologic: oriented x 3, responsive, depressed affect Rola Reno MD Oct 01, 2018 13:26
--- NOTE | 2018-10-01 13:30 | NUR ---
NURSE NOTES: Dr beal visited pt and she is aware pt has tachy cardia last night and Dr stated to monitor 0pt. will continue to monitor.
--- NOTE | 2018-10-01 15:15 | NUR ---
CASE MANAGEMENT: REVIEW SI: AMS T 98.7 HR 132 RR 19 BP 149/91 SAT 95% ROOM AIR IS: ASA PO QD COGENTIN PO QD DEPAKOTE ER PO QHS MED/SURG STATUS DCP: SEEKING SNF PLACEMENT
--- NOTE | 2018-10-01 15:16 | NUR ---
CASE MANAGEMENT: DCPNOTE UPON DISCHARGE PATIENT WILL TRANSFER TO [facility] [phone] [facility] [address] [facility] [place] [phone] WOULD LIKE TO SEND HER BROTHER TO A PSYCH FACILITY TRANSPORTATION VIA [facility] [id number] Addendum: 10/01/18 at 1709 by RAYSHAWN SHIN CM [facility]# [id number] TRANSPORTATION AUTH# [id number]
[2018-10-01 16:00] VITALS: BP 122/69
--- NOTE | 2018-10-01 16:15 | NUR ---
Social Work This Sw received a call from the finance insurance manager, questioning whether patient will qualify for [facility] services. This Sw spoke with sister, Carlos Enrique who explains she believes patient has been diagnosed in the past for mental retardation. This Sw provided contact information to sister regarding applying with the [facility]. In addition, this SW provided Two contacts for placement into a Board/Care more appropriate for level of care patient is requiring. plans to follow up with the [facility], along with Assisted Living placement agencies.
--- NOTE | 2018-10-01 16:48 | NUR ---
NURSE NOTES: find SNF [facility] for pt. pt is stable. V/S stable. Dr womack is aware and gave us D/C order. all discharge assessments and instructions done and pt verbally confirmed to understand all. pt's daughter ADRIANA is aware. given report to ENE PHELPS in SNF. all belongings are with pt. pt left hospital with accompany of ambulance personnel.
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
== END 2018-10-01 17:00 | DRG 52 ==
LOC: EDBD 17:22 → EMR 19:40 → 2E 23:55 → EDBEDREQ 09-19 01:01 → EDBEDREQSVC 09-19 01:01 → EDBEDREQ 09-19 02:41 → 3E 09-19 17:06
DX: G93.40 Encephalopathy, unspecified (principal); F25.9 Schizoaffective disorder, unspecified; R31.9 Hematuria, unspecified; F09 Unspecified mental disorder due to known physiological condition; F12.90 Cannabis use, unspecified, uncomplicated
CPT/HCPCS: 36415; 70450; 71045; 80053; 80307; 80329; 81003; 84484; 85025; 87081; 93005; 96361; 96372; 96374; 96375; 99285